=== PATIENT | male | born 1980 | race Caucasian/White ===

== ENCOUNTER 2022-05-11 13:49 | Emergency (ER) | payer OTHER ==
[2022-05-11 13:56] VITALS: RESP 18; TEMP 97.6
[2022-05-11] MEDS ORDERED: HYDROcodone/APAP 7.5-325MG 1 EACH TAB PO ONE (15:25)
--- NOTE | 2022-05-11 16:11 | US ---
EXAMINATION TYPE: US groin RT DATE OF EXAM: 05/11/2022 COMPARISON: NONE CLINICAL HISTORY: pain. Right groin pain, patient feels like he pulled a muscle while bowling couple days ago Scanned right groin at patient's area of pain: no fluid collection, mass or lymph node seen at this t anselmo IMPRESSION: As above. No significant abnormality seen on images obtained to account for patient's sy mptoms
--- NOTE | 2022-05-11 16:59 | ED ---
Lower Extremity Injury HPI - General Chief Complaint: Extremity Injury, Lower Stated Complaint: rt thigh pain Time Seen by Provider: 05/11/22 13:55 Source: patient Mode of arrival: ambulatory Limitations: no limitations - History of Present Illness Initial Comments: 41-year-old male with no reported past medical history who presents to the emergency room reporting right groin pain. States that he injured himself 3 days ago and began having groin pain. Last night at bowling he strained it again. He does not feel a bulge at the site. No previous history of prior. Denies any testicular pain. No difficulties urinating or having a bowel movement. Denies any back pain. Pain is reproducible upon movement. Taking Motrin without any improvement in his symptoms. No other alleviating, precipitating factors - Related Data Home Medications Medication Instructions Recorded Confirmed DULoxetine HCL [Cymbalta] 60 mg PO DAILY 05/11/22 05/11/22 Nicotine 14Mg/24Hr Patch [Habitrol 1 patch TRANSDERM DAILY 05/11/22 05/11/22 14Mg/24Hr Patch] Rizatriptan Benzoate [Rizatriptan] 10 mg PO DAILY PRN 05/11/22 05/11/22 Topiramate [Topamax] 50 mg PO BID 05/11/22 05/11/22 Previous Rx's Medication Instructions Recorded HYDROcodone/APAP 10-325MG [[place] 1 tab PO Q4HR PRN #18 tab 05/11/22 10-325] Allergies Allergy/AdvReac Type Severity Reaction Status Date / Time No Known Allergies Allergy Verified 05/11/22 15:15 Review of Systems ROS Statement: Those systems with pertinent positive or pertinent negative responses have been documented in the HPI. ROS Other: All systems not noted in ROS Statement are negative. Past Medical History Past Medical History: No Reported History History of Any Multi-Drug Resistant Organisms: None Reported Past Surgical History: No Surgical Hx Reported Smoking Status: Vaper Past Alcohol Use History: None Reported Past Drug Use History: None Reported General Exam Limitations: no limitations General appearance: alert, in no apparent distress Head exam: Present: atraumatic, normocephalic, normal inspection Eye exam: Present: normal appearance, PERRL, EOMI. Absent: scleral icterus, conjunctival injection, periorbital swelling ENT exam: Present: normal exam, mucous membranes moist Neck exam: Present: normal inspection. Absent: tenderness, meningismus, lymphadenopathy Respiratory exam: Present: normal lung sounds bilaterally. Absent: respiratory distress, wheezes, rales, rhonchi, stridor Cardiovascular Exam: Present: regular rate, normal rhythm, normal heart sounds. Absent: systolic murmur, diastolic murmur, rubs, gallop, clicks GI/Abdominal exam: Present: soft, normal bowel sounds. Absent: distended, tenderness, guarding, rebound, rigid exam: Present: normal inspection, other (pain right inguinal canal. no hernia). Absent: testicular tenderness, scrotal swelling Extremities exam: Present: normal inspection, full ROM, normal capillary refill. Absent: tenderness, pedal edema, joint swelling, calf tenderness Back exam: Present: normal inspection Neurological exam: Present: alert, oriented X3, CN II-XII intact Psychiatric exam: Present: normal affect, normal mood Skin exam: Present: warm, dry, intact, normal color. Absent: rash Course Vital Signs 05/11/22 05/11/22 05/11/22 13:51 15:37 17:08 Temperature 97.6 F Pulse Rate 93 75 73 Respiratory 18 18 18 Rate Blood Pressure 140/72 136/92 127/77 O2 Sat by Pulse 99 98 96 Oximetry Medical Decision Making - Medical Decision Making Was pt. sent in by a medical professional or institution ([facility], [employer], urgent care, hospital, or usp...) When possible be specific @ -No Did you speak to anyone other than the patient for history (EMS, parent, family, police, friend...)? What history was obtained from this source @ -No Did you review nursing and triage notes (agree or disagree)? Why? @ -I reviewed and agree with nursing and triage notes Were old charts reviewed (outside hosp., previous admission, EMS record, old EKG, old radiological studies, urgent care reports/EKG's, usp records)? Report findings @ -No old charts were reviewed Differential Diagnosis (chest pain, altered mental status, abdominal pain women, abdominal pain men, vaginal bleeding, weakness, fever, dyspnea, syncope, headache, dizziness, GI bleed, back pain, seizure, CVA, palpatations, mental health, musculoskeletal)? @ -groin strain, kidney stone, uti, testicular torsion EKG interpreted by me (3pts min.). @ -No X-rays interpreted by me (1pt min.). @ -No CT interpreted by me (1pt min.). @ -None done U/S interpreted by me (1pt. min.). @ -ye What testing was considered but not performed or refused? (CT, X-rays, U/S, labs)? Why? @ -None What meds were considered but not given or refused? Why? @ -None Did you discuss the management of the patient with other professionals (professionals i.e. , PA, [employer], lab, RT, psych nurse, geriatric social work professor, virologist, teacher, corporate banking officer, manager of case management)? Give summary @ -No Was smoking cessation discussed for >3mins.? @ -No Was critical care preformed (if so, how long)? @ -No Were there social determinants of health that impacted care today? How? (Homelessness, low income, unemployed, alcoholism, drug addiction, transportation, low edu. Level, literacy, decrease access to med. care, [facility] [facility], rehab)? @ -No Was there de-escalation of care discussed even if they declined (Discuss DNR or withdrawal of care, Hospice)? DNR status @ -No What co-morbidities impacted this encounter? (DM, HTN, Smoking, COPD, CAD, Cancer, CVA, ARF, Chemo, Hep., AIDS, mental health diagnosis, sleep apnea, morbid obesity)? @ -None Was patient admitted / discharged? Hospital course, mention meds given and route, prescriptions, significant lab abnormalities, going to OR and other pertinent info. @ -Upon arrival patient was placed into room 8. A thorough history and physical exam was performed. Ultrasound was performed which demonstrates no signs of hernia. Patient is given a [place] for pain control. Likely has groin strain. He is alternate taking the [place] with Motrin. Rest, ice and elevate. Return for any new or worsening symptoms or patient agreeable and discharged home in stable condition Undiagnosed new problem with uncertain prognosis? @ -yes Drug Therapy requiring intensive monitoring for toxicity (Heparin, Nitro, Insulin, Cardizem)? @ -No Were any procedures done? @ -No Diagnosis/symptom? @ -acute right groin pain Acute, or Chronic, or Acute on Chronic? @ -acute Uncomplicated (without systemic symptoms) or Complicated (systemic symptoms)? @ -uncomplicated Side effects of treatment? @ -No Exacerbation, Progression, or Severe Exacerbation? @ -No Poses a threat to life or bodily function? How? (Chest pain, [place], [place], pneumonia, PE, COPD, DKA, ARF, appy, cholecystitis, CVA, Diverticulitis, Homicidal, Suicidal, threat to staff... and all critical care pts) @ -No Disposition Clinical Impression: Groin strain Disposition: HOME SELF-CARE Condition: Stable Instructions (If sedation given, give patient instructions): Groin Strain (ED) Additional Instructions: Please alternate taking the [place] with your Motrin. Follow-up with the orthopedic office if possible and return for any new or worsening symptoms Prescriptions: HYDROcodone/APAP 10-325MG [[place] 10-325] 1 tab PO Q4HR PRN #18 tab PRN Reason: pain Is patient prescribed a controlled substance at d/c from ED?: Yes When asked, does pt state using other controlled substances?: No If prescribed controlled substance>3 days was MAPS reviewed?: Prescribed <3 Days Referrals: Nonstaff,Physician [Primary Care Provider] - 1-2 days Troy Ramirez DO [Doctor of Osteopathic Medicine] - 1-2 days Time of Disposition: 16:58
[2022-05-11 17:12] VITALS: BP 127/77; PULSE 73
== END 2022-05-11 17:20 | disposition home or self-care (01) ==
LOC: EC 13:49
DX: S39.011A Strain of muscle, fascia and tendon of abdomen, initial encounter (principal); F17.290 Nicotine dependence, other tobacco product, uncomplicated; X50.3XXA Overexertion from repetitive movements, initial encounter; Y93.54 Activity, bowling
CPT/HCPCS: 99283; 99284